=== PATIENT | female | born 1935 | race Caucasian/White ===

== ENCOUNTER → 2016-07-08 | Outpatient (CLI) | payer OTHER, MEDICARE | LOC: RAD 15:25 | DX: R05 Cough (principal); J44.9 Chronic obstructive pulmonary disease, unspecified ==

== ENCOUNTER → 2017-02-09 | Outpatient (CLI) | payer OTHER | LOC: RAD 14:09 | DX: L03.116 Cellulitis of left lower limb (principal); M79.662 Pain in left lower leg ==

== ENCOUNTER 2020-03-06 13:39 | Inpatient (IN) | payer MEDICARE ==
[~2020-03-06] VITALS: Ht 162.6 cm; Wt 78.9 kg
[2020-03-06] MEDS ORDERED: IPRATROPIUM BROM3 M1 IH (17:21)
[2020-03-06] MEDS ORDERED: CHILDREN'S ASPI81 M1 PO (17:22)
[2020-03-06] MEDS ORDERED: MELATONIN5 M6 PO (17:22)
[2020-03-06] MEDS ORDERED: CLOPIDOGREL PO (17:22)
[2020-03-06] MEDS ORDERED: ATORVASTATIN CA20 MG PO (17:23)
[2020-03-06] MEDS ORDERED: MULTIVITAMIN1 SGL PO (17:24)
[2020-03-06 18:35] VITALS: BP 161/79
[2020-03-07 05:43] VITALS: BP 146/74
[2020-03-07 06:02] LABS: URINE APPEARANCE CLEAR; URINE BILIRUBIN NEGATIVE (NEGATIVE); URINE BLOOD NEGATIVE (NEGATIVE); URINE COLOR YELLOW; URINE GLUCOSE NEGATIVE (NEGATIVE); URINE KETONE NEGATIVE (NEGATIVE); URINE LEUKOCYTE ESTERASE NEGATIVE (NEGATIVE); URINE NITRATE NEGATIVE (NEGATIVE); URINE PROTEIN(semi-quant) TRACE mg/dL (NEGATIVE); URINE UROBILINOGEN NORMAL (NORMAL); URINE WBC 0-1 /hpf (0-3)
[2020-03-07 07:46] LABS: EOS # 0.2 (0.04-0.40); EOS % 2.8 % (1.0-5.0); HEMATOCRIT 39.8 % (37.0-47.0); HEMOGLOBIN 12.6 g/dL (12.5-16.0); LYMPH# 2.2 (1.50-4.00); MEAN CELL VOLUME 99 fl (78-100); MEAN CORPUSCULAR HEMOGLOBIN 31 pg (27-31); MEAN CORPUSCULAR HGB CONC 32 g/dL (33-37); MEAN PLATELET VOLUME 10.2 fl (7.4-10.4); MONO # 0.8 (0.20-0.80); NEU # 4.8 (1.40-6.50); PLATELET COUNT 242 K/mm3 (130-400); RED BLOOD COUNT 4.02 M/mm3 (4.10-5.30); RED CELL DISTRIBUTION WIDTH 14.5 % (11.5-14.5)
[2020-03-07 07:58] LABS: ALBUMIN 3.5 g/dL (3.4-4.8); POTASSIUM 4.1 mmol/L (3.5-5.1)
[2020-03-07 07:59] LABS: CALCIUM 8.9 mg/dL (8.3-10.5)
[2020-03-07 08:00] LABS: TOTAL PROTEIN 5.8 g/dL (6.2-8.1)
[2020-03-07 08:02] LABS: TOTAL BILIRUBIN 0.4 mg/dL (0.2-1.2)
[2020-03-07 17:54] VITALS: BP 150/80
[2020-03-08 05:16] VITALS: BP 160/76
[2020-03-08 17:24] VITALS: BP 145/63
[2020-03-09 05:22] VITALS: BP 135/74
[2020-03-09 17:29] VITALS: BP 130/81
[2020-03-10 05:20] VITALS: BP 147/80
[2020-03-10 17:24] VITALS: BP 161/79
[2020-03-11 05:35] VITALS: BP 176/75
[2020-03-11 17:04] VITALS: BP 144/89
[2020-03-12 05:26] VITALS: BP 139/81
[2020-03-12 17:13] VITALS: BP 135/62
[2020-03-13 05:41] VITALS: BP 145/78
[2020-03-13 17:03] VITALS: BP 158/77
[2020-03-14 05:57] VITALS: BP 119/72
[2020-03-14] MEDS ORDERED: CLOPIDOGREL PO (10:31)
[2020-03-14] MEDS ORDERED: ATORVASTATIN CA20 MG PO (10:31)
== END 2020-03-14 10:43 | disposition home or self-care (01) | DRG 948 ==
LOC: PACU 13:39 → MED/SURG 13:59
PROVIDERS: ADMIT Nurse Practitioner Family
DX: R53.81 Other malaise (principal); R27.0 Ataxia, unspecified; R47.1 Dysarthria and anarthria; E78.00 Pure hypercholesterolemia, unspecified; Z86.73 Personal history of transient ischemic attack (TIA), and cerebral infarction without residual deficits; Z86.718 Personal history of other venous thrombosis and embolism; Z96.659 Presence of unspecified artificial knee joint; Z79.82 Long term (current) use of aspirin